=== PATIENT | male | born 1990 | race Hispanic/Latino ===

== ENCOUNTER 2017-12-30 02:31 | Emergency (ER) | payer BC, SELFPAY ==
[2017-12-30] MEDS ORDERED: Ondansetron PF 4 MG/2 ML Vial ONE (02:39)
--- NOTE | 2017-12-30 10:39 | CT ---
PRELIMINARY REPORT/[facility]/EMERGENTY AFTER-HOURS PROCEDURE CT Head Without Intravenous Contrast EXAM DATE/TIME: 12/30/2017 4:46 AM CLINICAL HISTORY: 27 years old, male; Injury or trauma; Fall; Initial encounter; Abrasion; Not specified; Patient HX: , M27 presents to the ed due to witnessed fall S/P drinking tonight at [facility]. PT landed on his fac e, denies loc. PT has a lac to inside of his lip. PT denies any complaints TECHNIQUE: Axial computed tomography images of the head/brain without intravenous contrast. COMPARISON: No relevant prior studies available. FINDINGS: Brain: Normal. No hemorrhage. No significant white matter disease. No edema. Ventricles: Normal. No ventriculomegaly. Bones/joints: Normal. No acute fracture. Sinuses: There is nonspecific opacification within the paranasal sinuses. Mastoid air cells: Normal as visualized. No mastoid effusion. Soft tissues: Normal. IMPRESSION: No acute intracranial hemorrhage. Thank you for allowing us to participate in the care of your patient. Dictated and Authenticated by: Ranjit Marks MD 12/30/2017 4:54 AM Central Time ([place] & [place]) FINAL REPORT CT BRAIN WITHOUT CONTRAST: Date: 12/30/17 FINDINGS/IMPRESSION: I agree with the preliminary report given by Mynor. POS: [facility]
== END 2017-12-30 12:25 | disposition home or self-care (01) ==
LOC: ERS 02:31
DX: S01.511A Laceration without foreign body of lip, initial encounter (principal); F10.129 Alcohol abuse with intoxication, unspecified; W19.XXXA Unspecified fall, initial encounter
CPT/HCPCS: 36415; 70450; 80307; J2405